=== PATIENT | male | born 1980 | race Caucasian/White ===

== ENCOUNTER 2018-10-02 06:31 | Emergency (ER) | payer SELFPAY, OTHER ==
[2018-10-02] MEDS: IBUPROFEN 600 MG TAB PO (06:53)
== END 2018-10-02 08:09 | disposition home or self-care (01) ==
LOC: FTE 06:31
DX: M25.532 Pain in left wrist (principal)
CPT/HCPCS: 29125; 73090; 73110-LT; 99283-25